=== PATIENT | female | born 1960 | race Caucasian/White ===

== ENCOUNTER 2016-12-31 10:00 | Outpatient (CLI) | payer MEDICARE, MEDICAID ==
--- NOTE | 2016-12-31 12:20 | MMO ---
BASELINE BILATERAL SCREENING MAMMOGRAM: Date: 12/31/16 COMPARISON: None. HISTORY: Screening. FINDINGS: This patient's mammogram was interpreted with the assistance of computer-aided detection. Scattered fibroglandular densities are present. No dominant mass or architectural distortion. No conc erning calcifications are noted. IMPRESSION: BIRADS 1: Negative Annual screening advised. POS: [facility]
== END 2016-12-31 10:01 | disposition home or self-care (01) ==
LOC: SCSMAMMO 10:00
PROVIDERS: ATTEND Nurse Practitioner Family
DX: Z12.31 Encounter for screening mammogram for malignant neoplasm of breast (principal)
CPT/HCPCS: 77067; G0202

== ENCOUNTER 2017-05-30 10:32 | Emergency (ER) | payer MEDICARE, MEDICAID ==
--- NOTE | 2017-05-30 11:14 | CT ---
CT OF THE BRAIN WITHOUT CONTRAST: INDICATION: History of fall, hitting right side of the head. FINDINGS: No comparisons are available. No acute infarct, hemorrhage, or hydrocephalus is present. Septum pellucidum and third ventricle are midline. The skull and extracranial soft tissues are unremarkable. IMPRESSION: No acute intracranial abnormality. POS: [facility]
--- NOTE | 2017-05-30 11:18 | CT ---
CT CERVICAL SPINE WITHOUT CONTRSAT: INDICATION: History of fall with neck pain. FINDINGS: Craniocervical junction is normal-appearing. There is mild multilevel disk degenerative facet osteoa rthritic change. Osseous central canal is preserved. No acute fracture or subluxation is demonstrat ed. The lung apices are clear. There is partial visualization of pacemaker leads within the upper t horax. Prevertebral soft tissues are normal-appearing. IMPRESSION: No acute fracture or subluxation is demonstrated. POS: [facility]
--- NOTE | 2017-05-30 11:23 | RAD ---
AP VIEW OF THE PELVIS WITH 2 VIEWS OF THE LEFT HIP: INDICATION: Fall. FINDINGS: No acute fracture or subluxation is evident. There is mild degenerative arthrosis involving the left hip. There is a mild amount of retained stool within the rectum and left hemicolon. There is mild diffuse osteopenia. IMPRESSION: 1. No acute osseous abnormality. 2. A mild amount of retained stool within the rectum and left hemicolon. POS: [facility]
== END 2017-05-30 12:58 | disposition home or self-care (01) ==
LOC: ERS 10:32
DX: S70.02XA Contusion of left hip, initial encounter (principal); S09.90XA Unspecified injury of head, initial encounter; I10 Essential (primary) hypertension; K21.9 Gastro-esophageal reflux disease without esophagitis; F31.9 Bipolar disorder, unspecified; F20.9 Schizophrenia, unspecified; W19.XXXA Unspecified fall, initial encounter
CPT/HCPCS: 70450; 72125; 72170

== ENCOUNTER 2017-06-02 17:06 | Inpatient (IN) | payer MEDICARE, MEDICAID ==
[2017-06-02 18:20] LABS: #Basophils 0.1 thou/uL (0.0-0.2); #Eosinphils 0.1 thou/uL (0.0-0.7); #Monocytes 0.6 thou/uL (0.11-0.59); #Neutrophils 5.8 thou/uL (1.40-6.50); %Basophils 0.7 % (0.0-1.0); %Eosinophils 1.3 % (0.0-10.0); %Neutrophils 68.1 % (42.0-75.0); Hemoglobin 11.7 g/dL (12.0-16.0); Mean Corpuscular HGB CONC 35.7 g/dL (32.0-36.0); Mean Corpuscular Hemoglobin 31.1 pg (27.0-31.0); Mean Corpuscular Volume 87.1 fl (81.0-99.0); Mean Platelet Volume 6.8 fL (7.4-10.4); Platelet Count 267 thou/uL (130-400); RBC Distribution Width 10.9 % (11.5-14.5); Red Blood Cell (RBC) Count 3.75 mill/uL (4.20-5.40); White Blood Cell (WBC) Count 8.6 thou/uL (4.8-10.8)
[2017-06-02 18:45] LABS: ALT (SGPT) 11 U/L (8-55); AST (SGOT) 16 U/L (5-34); Albumin 4.1 g/dL (3.5-5.0); Alkaline Phosphatase 121 U/L (40-150); Anion Gap 17 mmol/L (10-20); BUN (Urea Nitrogen) 49 mg/dL (9.8-20.1); Bilirubin, Total 0.3 mg/dL (0.2-1.2); CKMB 2.1 ng/mL (0-6.6); Calc. Creatinine Clearance 0 mL/min (70-130); Calcium 9.5 mg/dL (7.8-10.44); Carbon Dioxide 28 mmol/L (22-29); Chloride 91 mmol/L (98-107); Estimated GFR-MDRD 19; Globulin 2.8 g/dL (2.4-3.5); Glucose 113 mg/dL (70-105); Lipase 78 U/L (8-78); Magnesium 2.3 mg/dL (1.6-2.6); Protein, Total 6.9 g/dL (6.0-8.3); Sodium 133 mmol/L (136-145)
[2017-06-02 18:49] LABS: Potassium 2.9 mmol/L (3.5-5.1)
--- NOTE | 2017-06-02 19:22 | RAD ---
AP VIEW OF THE CHEST: 06/02/17 INDICATION: History of altered mental status and hypotension. COMPARISON: None. FINDINGS: The lungs are clear. The cardiomediastinal silhouette is within normal limits. No acute osseous abnor mality is evident. IMPRESSION: No acute abnormality. POS: [facility]
--- NOTE | 2017-06-02 20:40 | CT ---
CT OF THE BRAIN WITHOUT CONTRAST 06/02/17 INDICATION: Altered mental status and hypotension. Last seen normal at breakfast earlier. Patient has a history o f dementia. COMPARISON: Prior exam dated 05/30/17. FINDINGS: No acute infarct, hemorrhage, or hydrocephalus is present. The septum pellucidum and third ventricle are midline. Skull and extracranial soft tissues are unremarkable appearing. IMPRESSION: No acute intracranial abnormality. No appreciable change seen from a comparison dated 05/30/17. POS: [facility]
[2017-06-02 20:51] LABS: Bilirubin Negative (Negative); Clarity CLOUDY (Clear); Glucose, Urine (Dipstick) Negative (Negative); Leukocyte Large (Negative); Nitrite Positive (Negative); Protein, Urine (Dipstick) Negative (Neg-Trace); Specific Gravity, Urine 1.009 (1.002-1.036); Urobilinogen 0.2 mg/dL (0.2-1.0); pH, Urine 6.5 (5.0-9.0)
[2017-06-02 20:53] LABS: Bacteria/HPF 3+ HPF (None Seen); Hyaline Casts/LPF 4-6 HYALINE CAST LPF (0-3 Hyaline)
[2017-06-02] MEDS ORDERED: cefTRIAXone Sodium 1 MG in Syringe 0 ML IVPB SCH ×3 (21:00)
[2017-06-02] MEDS ORDERED: Famotidine/PF 20 mg/2ml Vial SLOW IVP SCH (21:00)
[2017-06-02] MEDS ORDERED: Pantoprazole 40 MG VIAL IVP SCH ×2 (21:00)
[2017-06-02 21:03] LABS: Blood, Urine Negative (Negative); RBC/HPF 0-3 HPF (0-3)
[2017-06-02 22:39] LABS: Anion Gap 15 mmol/L (10-20); BUN (Urea Nitrogen) 47 mg/dL (9.8-20.1); Calc. Creatinine Clearance 0 mL/min (70-130); Calcium 9.5 mg/dL (7.8-10.44); Carbon Dioxide 27 mmol/L (22-29); Chloride 94 mmol/L (98-107); Estimated GFR-MDRD 22; Glucose 113 mg/dL (70-105); Potassium 3.1 mmol/L (3.5-5.1); Sodium 133 mmol/L (136-145)
[2017-06-02 22:45] LABS: CKMB 2.4 ng/mL (0-6.6)
[2017-06-02 22:55] VITALS: BMI 31.7
[2017-06-03] MEDS: Heparin 5,000 UNITS/ML VIAL SC SCH ×8 (00:32→20:31)
--- NOTE | 2017-06-03 00:52 | HP ---
CHIEF COMPLAINT: Generalized weakness. PRIMARY CARE PHYSICIAN: Maria Alejandra Gore MD HISTORY OF PRESENT ILLNESS: Patient is a 56-year-old halfway resident with a history of paranoi d schizophrenia, diabetic, who presented to the hospital from the halfway with hypotension and a ltered mental status. Upon further talking with the patient's family who is at the bedside, who stat ed that patient for the past 3 weeks have been falling significantly and has been more confused than baseline. Furthermore, the patient's sister stated that when they took her out for dinner, patient rafy ot out of the hospital, could not walk very much and had to be let down gently because she just had s ome weakness. Family also has noticed that the patient has not been eating or drinking very much for the past few days. According to the patient and patient's family, she has fallen about 4 or 5 times in the last 2-3 weeks. The patient currently denies any chest pain, shortness of breath, nausea, vo miting, abdominal pain, or diarrhea. Spoke with the patient's sister who stated that there was a new psychiatrist for the past 2 weeks and has changed some of her medications. I will see if I can call the halfway tomorrow to see if any medications have been changed recently. PAST MEDICAL HISTORY: Paranoid schizophrenia. The patient has a pacemaker insertion, unknown reason . Actually patient's family stated that she was passing out while walking and therefore had a pacema ker inserted. SOCIAL HISTORY: Denies any smoking, however, in the past was a very heavy on alcoholic beverages and also a drug use in the past. FAMILY HISTORY: History of diabetes in both sisters. PAST SURGICAL HISTORY: She had some sort of ankle surgery; however, the patient is unable to tell me either right or left ankle. Scars are noted on the right ankle. REVIEW OF SYSTEMS: The following complete review of systems was negative, unless otherwise mentioned in the HPI or below: Constitutional: Weight loss or gain, ability to conduct usual activities. Sk in: Rash, itching. Eyes: Double vision, pain. ENT/Mouth: Nose bleeding, neck stiffness, pain, te nderness. Cardiovascular: Palpitations, dyspnea on exertion, orthopnea. Respiratory: Shortness of breath, wheezing, cough, hemoptysis, fever or night sweats. Gastrointestinal: Poor appetite, abdom inal pain, heartburn, nausea, vomiting, constipation, or diarrhea. Genitourinary: Urgency, frequenc y, dysuria, nocturia. Musculoskeletal: Pain, swelling. Neurologic/Psychiatric: Anxiety, depressio n. Allergy/Immunologic: Skin rash, bleeding tendency. MEDICATIONS: This is from the list from the halfway; 1. Amitriptyline 200 mg at bedtime. 2. Benztropine 1 mg at bedtime. 3. Colace 100 mg daily. 4. Ferrous sulfate 1 tab daily. 5. Fluphenazine decanoate solution 1 mL intramuscularly every day, starting at 15 and ending on e of every month. 6. Haloperidol 1 mg twice a day. 7. Klonopin 0.5 t.i.d. 8. Lasix 40 mg 1 p.o. daily. 9. Losartan and hydrochlorothiazide 100/25 mg one p.o. daily. 10. Metoprolol 50 mg 1 p.o. daily. 11. Prazosin 2 mg daily. 12. Tegretol 200 mg p.o. twice a day. 13. Zoloft 100 mg 1 p.o. daily. PHYSICAL EXAMINATION: VITAL SIGNS: The patient's temperature is 97.7, 20, 68, 101/68, 100% room air. GENERAL: She is awake, alert, oriented x2, does not appear in distress. CARDIOVASCULAR: S1, S2 present. No murmurs, rubs, or gallops. Pacemaker is on the left chest wall. No pain upon palpation. LUNGS: Clear to auscultation. No rhonchi or wheezes noted. ABDOMEN: Soft, nontender. Bowel sounds are present x2. EXTREMITIES: No pitting edema. LABORATORY DATA: As following: WBC of 8.6, hemoglobin 11.7, hematocrit of 32.7, platelets of 267,00 0. Sodium of 133, potassium of 2.9, BUN 49, creatinine of 2.59, unknown baseline. CK of 2.1, tropon in 0.02. BNP is 42. Ammonia of 17. TSH is 1.13. ASSESSMENT AND PLAN: The patient is a very pleasant 56-year-old female who presents to the hospital with complaints of altered mental status and generalized weakness. 1. Generalized weakness could be secondary to urinary tract infection versus arrhythmia. I am still waiting on urine which has not been collected. Chest x-ray does not appear to have any acute infect ious process, normal WBCs. Also, the patient does have creatinine of 2.59, I do not have previous on e for comparison. We will check a renal ultrasound, also replaced potassium is 2.9. We will get pac emaker interrogated. Also, we will await urine collection and start her on IV antibiotics for now fo r a possible UTI and her thyroid is normal. We will also get an echocardiogram to make sure patient has no systolic versus diastolic dysfunction. 2. Hypokalemia. She received 60 mEq of potassium in the ER. We will recheck a BMP at 10:00 p.m. to night. 3. Acute kidney injury. Again, I am not sure what the patient's baseline is. We will get a renal u ltrasound and will also call halfway in the morning to see if she had previous lab work. 4. Deep venous thrombosis prophylaxis. We will put the patient on subcu heparin. Also, we will david nd troponins.
[2017-06-03] MEDS: cefTRIAXone\\ROCEPHIN 1 GM, Syringe 0.4 ML in Sterile Water 9.6 ML SLOW IVP SCH ×2 (00:54→21:37)
[2017-06-03 06:09] LABS: Anion Gap 14 mmol/L (10-20); BUN (Urea Nitrogen) 42 mg/dL (9.8-20.1); Calc. Creatinine Clearance 49 mL/min (70-130); Calcium 9.7 mg/dL (7.8-10.44); Carbon Dioxide 27 mmol/L (22-29); Chloride 96 mmol/L (98-107); Estimated GFR-MDRD 30; Glucose 113 mg/dL (70-105); Sodium 134 mmol/L (136-145)
[2017-06-03 06:11] LABS: #Eosinphils 0.3 thou/uL (0.0-0.7); #Lymphocytes 2.2 thou/uL (1.20-3.40); #Monocytes 0.6 thou/uL (0.11-0.59); #Neutrophils 5.9 thou/uL (1.40-6.50); %Basophils 0.1 % (0.0-1.0); %Eosinophils 3.2 % (0.0-10.0); %Lymphocytes 24.1 % (21.0-51.0); %Monocytes 6.9 % (0.0-10.0); %Neutrophils 65.7 % (42.0-75.0); Hemoglobin 10.9 g/dL (12.0-16.0); Mean Corpuscular HGB CONC 35.2 g/dL (32.0-36.0); Mean Corpuscular Hemoglobin 30.5 pg (27.0-31.0); Mean Corpuscular Volume 86.7 fl (81.0-99.0); Mean Platelet Volume 6.9 fL (7.4-10.4); Platelet Count 254 thou/uL (130-400); RBC Distribution Width 10.8 % (11.5-14.5); Red Blood Cell (RBC) Count 3.56 mill/uL (4.20-5.40)
[2017-06-03 06:13] LABS: Potassium 2.5 mmol/L (3.5-5.1)
[2017-06-03] MEDS ORDERED: Potassium Chloride 20 MEQ TAB PO SCH ×4 (06:45→11:00)
[2017-06-03] MEDS ORDERED: ACETAMINOPHEN WITH CODEINE PO SCH (09:00)
--- NOTE | 2017-06-03 09:56 | ULT ---
RENAL SONOGRAM: DATE: 06/03/17. HISTORY: Acute renal insufficiency. FINDINGS: The kidneys demonstrate a normal sonographic appearance bilaterally without evidence of a renal mass, renal calculus, or hydronephrosis. The right kidney measures 10.3 cm x 4.8 cm with the left kidney measuring 10.2 cm x 5.3 cm. The urinary bladder is partially distended and has a normal sonographic appearance. The bilateral ur eteral jets are visualized. IMPRESSION: Normal-appearing bilateral kidneys. There is no evidence of hydronephrosis. POS: [facility]
[2017-06-03] MEDS: Haloperidol 1 MG TAB PO SCH ×2 (10:44→20:22)
[2017-06-03] MEDS: clonazePAM 0.5 MG TAB PO SCH ×3 (10:44→20:22)
[2017-06-03] MEDS: Docusate 100 MG CAP PO SCH (10:44)
[2017-06-03] MEDS: Metoprolol Tartrate 50 MG TAB PO SCH ×2 (10:45→20:22)
[2017-06-03] MEDS: carBAMazepine 200 MG TAB PO SCH ×2 (10:45→20:22)
[2017-06-03] MEDS: Famotidine 20 MG TAB PO SCH (10:45)
[2017-06-03] MEDS: Ferrous Sulfate 325 MG TAB PO SCH (10:46)
[2017-06-03] MEDS: Perphenazine 2 MG TAB PO SCH ×2 (11:54→20:21)
[2017-06-03 12:43] LABS: Anion Gap 13 mmol/L (10-20); BUN (Urea Nitrogen) 36 mg/dL (9.8-20.1); Calc. Creatinine Clearance 61 mL/min (70-130); Calcium 9.8 mg/dL (7.8-10.44); Carbon Dioxide 29 mmol/L (22-29); Chloride 97 mmol/L (98-107); Estimated GFR-MDRD 40; Glucose 121 mg/dL (70-105); Potassium 3.4 mmol/L (3.5-5.1); Sodium 136 mmol/L (136-145)
[2017-06-03] MEDS: Acetaminophen/Codeine 30-300mg Tablet PO SCH ×2 (14:37→21:33)
--- NOTE | 2017-06-03 14:49 | PDOC.PN ---
- Subjective Encounter Start Date: 06/03/17 Encounter Start Time: 09:45 Subjective: pt up in bed more awake today and denies any compalins - Objective Vital Signs & Weight: Vital Signs (12 hours) Temp Pulse Pulse Pulse Resp BP BP 06/03/17 11:15 98.2 F 81 16 06/03/17 11:05 84 82 119/67 121/76 06/03/17 07:43 74 16 06/03/17 04:00 98.4 F 79 16 BP Pulse Ox 06/03/17 11:15 121/76 96 06/03/17 11:05 06/03/17 07:43 106/51 L 96 06/03/17 04:00 102/55 L 93 L Weight Weight 184 lb 12.8 oz Result Diagrams: 06/03/17 05:44 06/03/17 12:09 Phys Exam - Physical Examination HEENT: PERRLA, moist MMs, sclera anicteric, TM's clear, oral pharynx no lesions , 2+ tonsils Neck: no nodes, no JVD, supple, full ROM Respiratory: no wheezing, no rales, no rhonchi, wheezing present, clear to auscultation bilateral Cardiovascular: RRR, no significant murmur, no rub, gallop, irregular Gastrointestinal: soft, non-tender, no distention, positive bowel sounds Dx/Plan - Plan Acute metabolic encephlopathy 2) uti 3) generalized weakness 4) paranoid schizophrenia plan: will continue abx for uti. pt states she feels much better. Her pacemaker needs to be interrograted. Pt's home meds continued. possible Discharge in 24- 48hr * . Review of Systems - Review of Systems Eyes: negative: Pain, Vision Change, Conjunctivae Inflammation, Eyelid Inflammation, Redness, Other ENT: negative: Ear Pain, Ear Discharge, Nose Pain, Nose Discharge, Nose Congestion, Mouth Pain, Mouth Swelling, Throat Pain, Throat Swelling, Other Respiratory: negative: Cough, Dry, Shortness of Breath, Hemoptysis, SOB with Excertion, Pleuritic Pain, Sputum, Wheezing Cardiovascular: negative: chest pain, palpitations, orthopnea, paroxysmal nocturnal dyspnea, edema, light headedness, other Gastrointestinal: negative: Nausea, Vomiting, Abdominal Pain, Diarrhea, Constipation, Melena, Hematochezia, Other Genitourinary: negative: Dysuria, Frequency, Incontinence, Hematuria, Retention , Other - Medications/Allergies Allergies/Adverse Reactions: Allergies Allergy/AdvReac Type Severity Reaction Status Date / Time sulfamethoxazole Allergy Verified 06/02/17 19:35 [From Bactrim] trimethoprim [From Bactrim] Allergy Verified 06/02/17 19:35 Medications: Current Medications Acetaminophen/Codeine Phosphate (Tylenol #3) 1 tab PO Q8HR [facility] Last Admin: 06/03/17 14:37 Dose: 1 tab Amitriptyline HCl (Elavil) 200 mg PO HS [facility] Benztropine Mesylate (Cogentin) 1 mg PO HS [facility] Carbamazepine (Tegretol) 200 mg PO BID [facility] Last Admin: 06/03/17 10:45 Dose: 200 mg Clonazepam (Klonopin) 0.5 mg PO TID [facility] Last Admin: 06/03/17 10:44 Dose: 0.5 mg Docusate Sodium (Colace) 100 mg PO DAILY [facility] Last Admin: 06/03/17 10:44 Dose: 100 mg Famotidine (Pepcid) 20 mg PO DAILY [facility] Last Admin: 06/03/17 10:45 Dose: 20 mg Ferrous Sulfate (Feosol) 325 mg PO DAILY [facility] Last Admin: 06/03/17 10:46 Dose: 325 mg Haloperidol (Haldol) 1 mg PO BID [facility] Last Admin: 06/03/17 10:44 Dose: 1 mg Heparin Sodium (Porcine) (Heparin) 5,000 units SC TID [facility] Last Admin: 06/03/17 10:56 Dose: 5,000 units Ceftriaxone Sodium 1 gm/ (Syringe 0.4 ml/ Sterile Water) 10 mls @ 120 mls/hr SLOW IVP 2200 [facility] Last Admin: 06/03/17 00:54 Dose: Not Given Metoprolol Tartrate (Lopressor) 50 mg PO BID [facility] Last Admin: 06/03/17 10:45 Dose: 50 mg Perphenazine (Trilafon) 4 mg PO BID [facility] Last Admin: 06/03/17 11:54 Dose: 4 mg Prazosin HCl (Minipress) 2 mg PO HS [facility] Sertraline HCl (Zoloft) 100 mg PO DAILY [facility] Last Admin: 06/03/17 10:46 Dose: 100 mg Sodium Chloride (Flush - Normal Saline) 10 ml IVF Q12HR [facility] Last Admin: 06/03/17 10:46 Dose: 10 ml Sodium Chloride (Flush - Normal Saline) 10 ml IVF PRN PRN PRN Reason: Saline Flush
[2017-06-03] MEDS: Amitriptyline HCl 100 MG TAB PO SCH (20:22)
[2017-06-03] MEDS: Benztropine 1 MG TAB PO SCH ×2 (20:23)
[2017-06-03] MEDS: Prazosin HCl 1 MG CAP PO SCH (20:31)
[2017-06-04] MEDS: Acetaminophen/Codeine 30-300mg Tablet PO SCH ×3 (05:05→21:01)
[2017-06-04 05:36] LABS: Eosinophils 6 % (0-10); Hemoglobin 10.2 g/dL (12.0-16.0); Lymphocytes 50 % (21-51); MDiff Complete? YES; Mean Corpuscular Hemoglobin 30.7 pg (27.0-31.0); Mean Corpuscular Volume 87.8 fl (81.0-99.0); Mean Platelet Volume 7.1 fL (7.4-10.4); Monocytes 10 % (0-10); Neutrophil 34 % (42-75); PLT Morphology Comment Appears Adequate; Platelet Count 256 thou/uL (130-400); RBC Distribution Width 10.9 % (11.5-14.5); Red Blood Cell (RBC) Count 3.33 mill/uL (4.20-5.40); White Blood Cell (WBC) Count 7.1 thou/uL (4.8-10.8)
[2017-06-04 05:40] LABS: Anion Gap 11 mmol/L (10-20); BUN (Urea Nitrogen) 33 mg/dL (9.8-20.1); Calc. Creatinine Clearance 70 mL/min (70-130); Calcium 9.5 mg/dL (7.8-10.44); Carbon Dioxide 29 mmol/L (22-29); Chloride 100 mmol/L (98-107); Estimated GFR-MDRD 46; Glucose 110 mg/dL (70-105); Potassium 3.3 mmol/L (3.5-5.1); Sodium 137 mmol/L (136-145)
[2017-06-04] MEDS ORDERED: guaiFENesin 100 MG/5 ML UDCUP PO PRN (07:53)
[2017-06-04 08:12] LABS: Magnesium 2.1 mg/dL (1.6-2.6); Phosphorus 2.9 mg/dL (2.3-4.7)
[2017-06-04] MEDS ORDERED: Potassium Chloride 20 MEQ TAB PO SCH ×2 (08:15)
[2017-06-04] MEDS: Famotidine 20 MG TAB PO SCH (09:51)
[2017-06-04] MEDS: clonazePAM 0.5 MG TAB PO SCH ×3 (09:51→20:52)
[2017-06-04] MEDS: Heparin 5,000 UNITS/ML VIAL SC SCH ×6 (09:51→21:03)
[2017-06-04] MEDS: Calcium Carbonate + Vit D 1 TAB PO SCH ×2 (09:51→20:53)
[2017-06-04] MEDS: Haloperidol 1 MG TAB PO SCH ×2 (09:51→20:53)
[2017-06-04] MEDS: Docusate 100 MG CAP PO SCH (09:52)
[2017-06-04] MEDS: Perphenazine 2 MG TAB PO SCH ×2 (09:52→20:53)
[2017-06-04] MEDS: carBAMazepine 200 MG TAB PO SCH ×2 (09:52→20:52)
[2017-06-04] MEDS: Ferrous Sulfate 325 MG TAB PO SCH (09:52)
[2017-06-04] MEDS: Metoprolol Tartrate 50 MG TAB PO SCH (10:57)
--- NOTE | 2017-06-04 12:37 | PDOC.PN ---
- Subjective Encounter Start Date: 06/04/17 Encounter Start Time: 08:00 -: old records requested/rev Patient seen and examined. No new complaints. No overnight events - Objective MAR Reviewed: Yes Vital Signs & Weight: Vital Signs (12 hours) Temp Pulse Pulse Pulse Resp BP BP 06/04/17 11:42 98.0 F 73 16 06/04/17 09:43 97.7 F 68 18 06/04/17 08:38 68 68 95/60 107/59 L 06/04/17 04:00 98.0 F 63 14 BP Pulse Ox 06/04/17 11:42 104/62 96 06/04/17 09:43 98/58 L 95 06/04/17 08:38 06/04/17 04:00 101/56 L 93 L Weight Weight 184 lb 3 oz I&O: 06/03/17 06/04/17 06/05/17 06:59 06:59 06:59 Intake Total 1680 Output Total 2300 Balance -620 Result Diagrams: 06/04/17 04:52 06/04/17 04:52 EKG Reviewed by me: Yes (nsr) Phys Exam - Physical Examination Constitutional: NAD HEENT: PERRLA, moist MMs, sclera anicteric Neck: no JVD, supple Respiratory: no wheezing, no rales, no rhonchi Cardiovascular: RRR, no significant murmur, no rub Gastrointestinal: soft, non-tender, no distention, positive bowel sounds Musculoskeletal: no edema, pulses present Neurological: non-focal, normal sensation Lymphatic: no nodes Psychiatric: normal affect, A&O x 3 Skin: no rash, normal turgor Dx/Plan (1) Acute kidney failure Status: Acute (2) Encephalopathy acute Code(s): G93.40 - ENCEPHALOPATHY, UNSPECIFIED Status: Acute (3) Hypokalemia Code(s): E87.6 - HYPOKALEMIA Status: Acute (4) UTI (urinary tract infection) Status: Acute (5) Anemia, normocytic normochromic Code(s): D64.9 - ANEMIA, UNSPECIFIED Status: Chronic (6) GERD (gastroesophageal reflux disease) Code(s): K21.9 - GASTRO-ESOPHAGEAL REFLUX DISEASE WITHOUT ESOPHAGITIS Status: Chronic (7) H/O cardiac pacemaker Code(s): Z95.0 - PRESENCE OF CARDIAC PACEMAKER Status: Chronic (8) Hypertension Code(s): I10 - ESSENTIAL (PRIMARY) HYPERTENSION Status: Chronic (9) Obesity (BMI 30.0-34.9) Code(s): E66.9 - OBESITY, UNSPECIFIED Status: Chronic (10) Paranoid schizophrenia Code(s): F20.0 - PARANOID SCHIZOPHRENIA Status: Chronic - Plan cont current plan of care, continue antibiotics * replace potassium * await C & S result * meanwhile continue rocephin * renal function improving * medication reviewed as below * symptomatic treatment. * adjust BP meds today * currently BP runs low, so will hold BP meds * start IVF with potassium * repeat labs tomorrow Review of Systems - Review of Systems ENT: negative: Ear Pain, Ear Discharge, Nose Pain, Nose Discharge, Nose Congestion, Mouth Pain, Mouth Swelling, Throat Pain, Throat Swelling, Other Respiratory: negative: Cough, Dry, Shortness of Breath, Hemoptysis, SOB with Excertion, Pleuritic Pain, Sputum, Wheezing Cardiovascular: negative: chest pain, palpitations, orthopnea, paroxysmal nocturnal dyspnea, edema, light headedness, other Gastrointestinal: negative: Nausea, Vomiting, Abdominal Pain, Diarrhea, Constipation, Melena, Hematochezia, Other Genitourinary: negative: Dysuria, Frequency, Incontinence, Hematuria, Retention , Other Musculoskeletal: negative: Neck Pain, Shoulder Pain, Arm Pain, Back Pain, Hand Pain, Leg Pain, Foot Pain, Other Skin: negative: Rash, Lesions, Tesfaye, Bruising, Other - Medications/Allergies Allergies/Adverse Reactions: Allergies Allergy/AdvReac Type Severity Reaction Status Date / Time sulfamethoxazole Allergy Verified 06/02/17 19:35 [From Bactrim] trimethoprim [From Bactrim] Allergy Verified 06/02/17 19:35 Medications: Current Medications Acetaminophen/Codeine Phosphate (Tylenol #3) 1 tab PO Q8HR [facility] Last Admin: 06/04/17 05:05 Dose: 1 tab Albuterol Sulfate (Proventil Hfa) 2 puff INH Q8HR [facility] Amitriptyline HCl (Elavil) 200 mg PO [facility] Last Admin: 06/03/17 20:22 Dose: 200 mg Benztropine Mesylate (Cogentin) 1 mg PO [facility] Last Admin: 06/03/17 20:23 Dose: 1 mg Calcium/Vitamin D (Caltrate 600 + Vit D) 1 tab PO BID [facility] Last Admin: 06/04/17 09:51 Dose: 1 tab Carbamazepine (Tegretol) 200 mg PO BID [facility] Last Admin: 06/04/17 09:52 Dose: 200 mg Clonazepam (Klonopin) 0.5 mg PO TID [facility] Last Admin: 06/04/17 09:51 Dose: 0.5 mg Docusate Sodium (Colace) 100 mg PO DAILY [facility] Last Admin: 06/04/17 09:52 Dose: 100 mg Famotidine (Pepcid) 20 mg PO DAILY [facility] Last Admin: 06/04/17 09:51 Dose: 20 mg Ferrous Sulfate (Feosol) 325 mg PO DAILY [facility] Last Admin: 06/04/17 09:52 Dose: 325 mg Guaifenesin (Robitussin) 200 mg PO Q4H PRN PRN Reason: Cough Haloperidol (Haldol) 1 mg PO BID [facility] Last Admin: 06/04/17 09:51 Dose: 1 mg Heparin Sodium (Porcine) (Heparin) 5,000 units SC TID [facility] Last Admin: 06/04/17 09:51 Dose: 5,000 units Ceftriaxone Sodium 1 gm/ (Syringe 0.4 ml/ Sterile Water) 10 mls @ 120 mls/hr SLOW IVP 2200 [facility] Last Admin: 06/03/17 21:37 Dose: 10 mls Metoprolol Tartrate (Lopressor) 50 mg PO BID [facility] Last Admin: 06/04/17 10:57 Dose: Not Given Perphenazine (Trilafon) 4 mg PO BID [facility] Last Admin: 06/04/17 09:52 Dose: 4 mg Prazosin HCl (Minipress) 2 mg PO HS [facility] Last Admin: 06/03/17 20:31 Dose: 2 mg Sertraline HCl (Zoloft) 100 mg PO DAILY [facility] Last Admin: 06/04/17 09:51 Dose: 100 mg Sodium Chloride (Flush - Normal Saline) 10 ml IVF Q12HR [facility] Last Admin: 06/04/17 09:53 Dose: 10 ml Sodium Chloride (Flush - Normal Saline) 10 ml IVF PRN PRN PRN Reason: Saline Flush
[2017-06-04] MEDS: PROVENTIL INHALER 6.7 G (200 INHALATIONS) INH SCH ×2 (14:04→23:40)
[2017-06-04] MEDS: NS 0.9% w/ 20 MEQ KCL 1,000 ML/1,000 ML BAG IV SCH (15:08)
[2017-06-04] MEDS: Benztropine 1 MG TAB PO SCH ×2 (20:53)
[2017-06-04] MEDS: Prazosin HCl 1 MG CAP PO SCH (20:53)
[2017-06-04] MEDS: Amitriptyline HCl 100 MG TAB PO SCH (20:53)
[2017-06-04] MEDS: cefTRIAXone\\ROCEPHIN 1 GM, Syringe 0.4 ML in Sterile Water 9.6 ML SLOW IVP SCH (23:26)
[2017-06-05] MEDS: NS 0.9% w/ 20 MEQ KCL 1,000 ML/1,000 ML BAG IV SCH ×2 (01:55→13:58)
[2017-06-05 05:48] LABS: #Basophils 0.1 thou/uL (0.0-0.2); #Eosinphils 0.2 thou/uL (0.0-0.7); #Lymphocytes 3.3 thou/uL (1.20-3.40); #Monocytes 0.6 thou/uL (0.11-0.59); #Neutrophils 2.4 thou/uL (1.40-6.50); %Basophils 0.9 % (0.0-1.0); %Eosinophils 3.6 % (0.0-10.0); %Lymphocytes 49.9 % (21.0-51.0); %Monocytes 8.5 % (0.0-10.0); %Neutrophils 37.2 % (42.0-75.0); Hemoglobin 9.6 g/dL (12.0-16.0); Mean Corpuscular HGB CONC 34.8 g/dL (32.0-36.0); Mean Corpuscular Volume 89.1 fl (81.0-99.0); Mean Platelet Volume 6.8 fL (7.4-10.4); Platelet Count 242 thou/uL (130-400); RBC Distribution Width 10.9 % (11.5-14.5); Red Blood Cell (RBC) Count 3.09 mill/uL (4.20-5.40); White Blood Cell (WBC) Count 6.5 thou/uL (4.8-10.8)
[2017-06-05 06:02] LABS: Anion Gap 11 mmol/L (10-20); BUN (Urea Nitrogen) 17 mg/dL (9.8-20.1); Calc. Creatinine Clearance 99 mL/min (70-130); Calcium 9.1 mg/dL (7.8-10.44); Carbon Dioxide 27 mmol/L (22-29); Chloride 104 mmol/L (98-107); Estimated GFR-MDRD 69; Glucose 114 mg/dL (70-105); Potassium 3.8 mmol/L (3.5-5.1); Sodium 138 mmol/L (136-145)
[2017-06-05] MEDS: Acetaminophen/Codeine 30-300mg Tablet PO SCH ×2 (06:17→14:27)
[2017-06-05] MEDS: PROVENTIL INHALER 6.7 G (200 INHALATIONS) INH SCH ×2 (07:15→14:31)
[2017-06-05] MEDS: Calcium Carbonate + Vit D 1 TAB PO SCH (08:19)
[2017-06-05] MEDS: Ferrous Sulfate 325 MG TAB PO SCH (08:19)
[2017-06-05] MEDS: Famotidine 20 MG TAB PO SCH (08:19)
[2017-06-05] MEDS: carBAMazepine 200 MG TAB PO SCH (08:19)
[2017-06-05] MEDS: Docusate 100 MG CAP PO SCH (08:19)
[2017-06-05] MEDS: Haloperidol 1 MG TAB PO SCH (08:19)
[2017-06-05] MEDS: Heparin 5,000 UNITS/ML VIAL SC SCH ×4 (08:19→14:28)
[2017-06-05] MEDS: clonazePAM 0.5 MG TAB PO SCH ×2 (08:20→16:24)
[2017-06-05] MEDS ORDERED: Nitrofurantoin Monohyd/M-Cryst 100 MG CAP PO SCH ×2 (10:15→21:00)
[2017-06-05] MEDS: Perphenazine 2 MG TAB PO SCH (10:28)
--- NOTE | 2017-06-05 11:32 | PDOC.PN ---
- Subjective Encounter Start Date: 06/05/17 Encounter Start Time: 07:30 Patient seen and examined. No new complaints. No overnight events - Objective MAR Reviewed: Yes Vital Signs & Weight: Vital Signs (12 hours) Temp Pulse Resp BP BP Pulse Ox 06/05/17 08:15 97.7 F 85 18 118/63 98 06/05/17 07:15 65 12 06/05/17 04:00 97.5 F L 69 12 100/72 97 06/05/17 00:00 97.7 F 75 18 101/55 L 98 Weight Weight 190 lb I&O: 06/04/17 06/05/17 06/06/17 06:59 06:59 06:59 Intake Total 1680 2965 Output Total 2300 2000 Balance -620 965 Result Diagrams: 06/05/17 05:17 06/05/17 05:17 EKG Reviewed by me: Yes Phys Exam - Physical Examination Constitutional: NAD HEENT: PERRLA, moist MMs, sclera anicteric Neck: no JVD, supple Respiratory: no wheezing, no rales, no rhonchi Cardiovascular: RRR, no significant murmur, no rub Gastrointestinal: soft, non-tender, no distention, positive bowel sounds Musculoskeletal: no edema, pulses present Neurological: non-focal, normal sensation, moves all 4 limbs Psychiatric: normal affect, A&O x 3 Skin: no rash, normal turgor Dx/Plan (1) Acute kidney failure Status: Resolved (2) Encephalopathy acute Code(s): G93.40 - ENCEPHALOPATHY, UNSPECIFIED Status: Resolved (3) Hypokalemia Code(s): E87.6 - HYPOKALEMIA Status: Resolved (4) UTI (urinary tract infection) Status: Acute (5) Anemia, normocytic normochromic Code(s): D64.9 - ANEMIA, UNSPECIFIED Status: Chronic (6) GERD (gastroesophageal reflux disease) Code(s): K21.9 - GASTRO-ESOPHAGEAL REFLUX DISEASE WITHOUT ESOPHAGITIS Status: Chronic (7) H/O cardiac pacemaker Code(s): Z95.0 - PRESENCE OF CARDIAC PACEMAKER Status: Chronic (8) Hypertension Code(s): I10 - ESSENTIAL (PRIMARY) HYPERTENSION Status: Chronic (9) Obesity (BMI 30.0-34.9) Code(s): E66.9 - OBESITY, UNSPECIFIED Status: Chronic (10) Paranoid schizophrenia Code(s): F20.0 - PARANOID SCHIZOPHRENIA Status: Chronic - Plan cont current plan of care, continue antibiotics, director of social work * change to macrobid for UTI * stable for discharge * DC BP meds for low BP * medication reviewed as below * symptomatic treatment * see discharge theo. Review of Systems - Review of Systems ENT: negative: Ear Pain, Ear Discharge, Nose Pain, Nose Discharge, Nose Congestion, Mouth Pain, Mouth Swelling, Throat Pain, Throat Swelling, Other Respiratory: negative: Cough, Dry, Shortness of Breath, Hemoptysis, SOB with Excertion, Pleuritic Pain, Sputum, Wheezing Cardiovascular: negative: chest pain, palpitations, orthopnea, paroxysmal nocturnal dyspnea, edema, light headedness, other Gastrointestinal: negative: Nausea, Vomiting, Abdominal Pain, Diarrhea, Constipation, Melena, Hematochezia, Other Genitourinary: negative: Dysuria, Frequency, Incontinence, Hematuria, Retention , Other Musculoskeletal: negative: Neck Pain, Shoulder Pain, Arm Pain, Back Pain, Hand Pain, Leg Pain, Foot Pain, Other Skin: negative: Rash, Lesions, Tesfaye, Bruising, Other - Medications/Allergies Allergies/Adverse Reactions: Allergies Allergy/AdvReac Type Severity Reaction Status Date / Time sulfamethoxazole Allergy Verified 06/02/17 19:35 [From Bactrim] trimethoprim [From Bactrim] Allergy Verified 06/02/17 19:35 Medications: Current Medications Acetaminophen/Codeine Phosphate (Tylenol #3) 1 tab PO Q8HR [facility] Last Admin: 06/05/17 06:17 Dose: 1 tab Albuterol Sulfate (Proventil Hfa) 2 puff INH Q8HR [facility] Last Admin: 06/05/17 07:15 Dose: 2 puff Amitriptyline HCl (Elavil) 200 mg PO [facility] Last Admin: 06/04/17 20:53 Dose: 200 mg Benztropine Mesylate (Cogentin) 1 mg PO [facility] Last Admin: 06/04/17 20:53 Dose: 1 mg Calcium/Vitamin D (Caltrate 600 + Vit D) 1 tab PO BID [facility] Last Admin: 06/05/17 08:19 Dose: 1 tab Carbamazepine (Tegretol) 200 mg PO BID [facility] Last Admin: 06/05/17 08:19 Dose: 200 mg Clonazepam (Klonopin) 0.5 mg PO TID [facility] Last Admin: 06/05/17 08:20 Dose: 0.5 mg Docusate Sodium (Colace) 100 mg PO DAILY [facility] Last Admin: 06/05/17 08:19 Dose: 100 mg Famotidine (Pepcid) 20 mg PO DAILY [facility] Last Admin: 06/05/17 08:19 Dose: 20 mg Ferrous Sulfate (Feosol) 325 mg PO DAILY [facility] Last Admin: 06/05/17 08:19 Dose: 325 mg Guaifenesin (Robitussin) 200 mg PO Q4H PRN PRN Reason: Cough Haloperidol (Haldol) 1 mg PO BID [facility] Last Admin: 06/05/17 08:19 Dose: 1 mg Heparin Sodium (Porcine) (Heparin) 5,000 units SC TID [facility] Last Admin: 06/05/17 08:19 Dose: 5,000 units Potassium Chloride/Sodium Chloride (Ns 0.9% W/ 20 Meq Kcl) 1,000 ml in 1,000 mls @ 100 mls/hr IV .Q10H [facility] Last Admin: 06/05/17 01:55 Dose: Not Given Nitrofurantoin Macrocrystals (Macrobid) 100 mg PO BID [facility] Nitrofurantoin Macrocrystals (Macrobid) 100 mg PO NOW [facility] Stop: 06/05/17 12:15 Perphenazine (Trilafon) 4 mg PO BID [facility] Last Admin: 06/05/17 10:28 Dose: 4 mg Prazosin HCl (Minipress) 2 mg PO HS [facility] Last Admin: 06/04/17 20:53 Dose: 2 mg Sertraline HCl (Zoloft) 100 mg PO DAILY [facility] Last Admin: 06/05/17 08:20 Dose: 100 mg Sodium Chloride (Flush - Normal Saline) 10 ml IVF Q12HR [facility] Last Admin: 06/05/17 08:20 Dose: Not Given Sodium Chloride (Flush - Normal Saline) 10 ml IVF PRN PRN PRN Reason: Saline Flush
[2017-06-05 11:40] VITALS: TEMP 97.8
--- NOTE | 2017-06-05 12:46 | DIS ---
DATE OF ADMISSION: 06/02/2017 DATE OF DISCHARGE: 06/05/2017 PRIMARY CARE PHYSICIAN: Dr. Maria Alejandra Gore. DISCHARGE DISPOSITION: [facility]. PRIMARY DISCHARGE DIAGNOSES: 1. Acute kidney failure. 2. Acute metabolic encephalopathy. 3. Generalized weakness. 4. Urinary tract infection due to Pseudomonas. 5. Hypokalemia. SECONDARY DISCHARGE DIAGNOSES: Normocytic normochromic anemia, gastroesophageal reflux disease, hist ory of cardiac pacemaker, history of hypertension, obesity with BMI 32, and paranoid schizophrenia . PRIMARY PROCEDURE AND OPERATION: None. RADIOLOGICAL INVESTIGATION: CT brain was negative for any acute process. Chest x-ray negative for a ny acute process. Echocardiography showed EF 55%-60%. Renal ultrasound was normal. SIGNIFICANT LABS: Hemoglobin 9.6, WBC 6.5, platelet 242. Sodium 138, potassium 3.8, BUN 17, creatin ine 0.86, calcium 9.1, phosphorus 2.9, magnesium 2.1. Cardiac enzyme negative. LFT normal. BNP 42. 7. Urinalysis suggestive of UTI. Urine culture grew E. coli. Blood culture was negative. DISCHARGE MEDICATIONS: Tylenol No. 3 one tablet p.o. t.i.d. p.r.n., amitriptyline 200 mg p.o. at bed time, benztropine 1 mg p.o. at bedtime, calcium with vitamin D 1 tablet p.o. b.i.d., Tegretol 200 mg p.o. b.i.d., clonazepam 0.5 mg p.o. t.i.d., Colace 100 mg p.o. daily, ferrous sulfate 325 mg p.o. aime ly, Robitussin 10 mL q.4 hourly p.r.n., haloperidol 1 mg p.o. b.i.d., Imodium 2 mg as directed, Macro bid 100 mg p.o. b.i.d. for 7 days, Zofran 8 mg q.4 hourly p.r.n. Trilafon 4 mg p.o. b.i.d., Zoloft 10 0 mg p.o. daily, Ventolin 2 puffs q.8 hourly, and Zantac 150 mg p.o. b.i.d. CONTRAINDICATIONS: None. CODE STATUS: FULL CODE. INPATIENT CONSULTANTS: None. ALLERGIES: SULFA DRUGS. DISCHARGE PLAN: Post hospital, the patient is planned for discharge to [facility]. HOSPITAL COURSE: A 56-year-old female who was admitted by Dr. Laura Hayes. Please see her H and P for further details. This patient lives at [facility], where she was found confused th an her baseline. The patient was very weak. The patient was sent to emergency room and routine bloo d tests showed acute kidney failure. On admission, her creatinine was 2.59. She was clinically appe ared significantly dehydrated with a low sodium, low potassium, and low chloride. Other blood tests were unremarkable. Her urinalysis was suggestive of UTI. The patient was treated with Rocephin whil e in hospital, and based on culture and sensitivity result, we changed to Macrobid. Though the patie nt was not having any UTI symptoms, we decided to treat for 7 days with Macrobid therapy. With IV fl uid, patient's renal function improved to normal. During this admission, she was observed on telemet ry floor for any arrhythmia, but she did not have any arrhythmia. Her pacemaker was interrogated, wh ich was also unremarkable. Echocardiography was obtained, which was also unremarkable. Renal ultras ound was normal. By the time of discharge, the patient's renal function is improved to normal. Her CBC is improved and stable. The patient is also more alert and back to normal state. The patient is seen and examined at bedside today. Paper work for discharge done. Discharge medicat ion reconciliation done. Total time spent on discharge day is 31 minutes. Please see my discharge my progress note from today for further detail.
[2017-06-05 16:22] VITALS: BP 131/75
== END 2017-06-05 16:43 | DRG 682 ==
LOC: ERS 17:06 → 2NO 20:47
PROVIDERS: ADMIT Internal Medicine; ATTEND Internal Medicine
DX: N17.9 Acute kidney failure, unspecified (principal); G93.41 Metabolic encephalopathy; F20.0 Paranoid schizophrenia; B96.5 Pseudomonas (aeruginosa) (mallei) (pseudomallei) as the cause of diseases classified elsewhere; D64.9 Anemia, unspecified; E11.9 Type 2 diabetes mellitus without complications; N39.0 Urinary tract infection, site not specified; R53.1 Weakness; E87.6 Hypokalemia; K21.9 Gastro-esophageal reflux disease without esophagitis; Z95.0 Presence of cardiac pacemaker; I10 Essential (primary) hypertension; E66.9 Obesity, unspecified; Z68.32 Body mass index [BMI] 32.0-32.9, adult; Z88.2 Allergy status to sulfonamides; Z79.4 Long term (current) use of insulin
CPT/HCPCS: 36415; 70450; 71045; 72125; 72170; 76770; 80048; 80053; 81003; 81015; 82140; 82553; 83605; 83690; 83735; 83880; 84100; 84443; 84484; 85007; 85025; 85027; 87040; 87077; 87086; 87149; 87186; 93005; 93306; 96361; 96374; A4216; C9113; G8978-GP-CI; G8979-GP-CI; G8980-GP-CI; G8987-GO-CI; G8988-GO-CI; G8989-GO-CI; J0696; J1644; Q0175

== ENCOUNTER → 2020-05-07 | Day surgery (SDC) | payer MEDICARE, MEDICAID | LOC: ENDO/OP 11:26 | PROVIDERS: ATTEND Internal Medicine Gastroenterology | DX: K21.9 Gastro-esophageal reflux disease without esophagitis (principal); Z88.1 Allergy status to other antibiotic agents; Z88.2 Allergy status to sulfonamides | CPT/HCPCS: 91010 ==

== ENCOUNTER 2020-05-24 10:27 | Outpatient (CLI) | payer MEDICARE, MEDICAID ==
[2020-05-24 11:47] LABS: #Eosinphils 0.1 10x3/uL (0.0-0.5); #Monocytes 0.5 10x3/uL (0.0-1.1); #Neutrophils 2.9 10x3/uL (1.5-8.4); %Basophils 0.7 % (0.0-2.0); %Eosinophils 1.9 % (0.0-6.0); %Lymphocytes 37.9 % (18.0-47.0); %Neutrophils 50.3 % (40.0-75.0); Hemoglobin 12.3 g/dL (12.0-15.5); Mean Corpuscular HGB CONC 32.2 g/dL (32.0-36.0); Mean Corpuscular Hemoglobin 30.1 pg (27.0-33.0); Mean Corpuscular Volume 93.6 fl (81.6-98.3); Mean Platelet Volume 10.6 fl (7.4-10.4); Platelet Count 217 10x3/uL (150-450); RBC Distribution Width 11.8 % (11.5-14.5); Red Blood Cell (RBC) Count 4.08 10x6/uL (3.90-5.03); White Blood Cell (WBC) Count 5.7 10x3/uL (3.5-10.5)
[2020-05-24 12:12] LABS: Anion Gap 16 mmol/L (10-20); BUN (Urea Nitrogen) 12 mg/dL (9.8-20.1); Calc. Creatinine Clearance 0 mL/min (70-130); Carbon Dioxide 23 mmol/L (22-29); Chloride 108 mmol/L (98-107); Glucose 88 mg/dL (70-105); Potassium 4.5 mmol/L (3.5-5.1); Sodium 142 mmol/L (136-145)
[2020-05-24 17:58] LABS: SARS-CoV-2 PCR by NAA Not Detected (NotDetected)
== END 2020-05-24 10:28 | disposition home or self-care (01) ==
LOC: LABBT 10:27
PROVIDERS: ATTEND Surgery
DX: Z01.818 Encounter for other preprocedural examination (principal); K44.9 Diaphragmatic hernia without obstruction or gangrene; Z20.822 Contact with and (suspected) exposure to COVID-19
CPT/HCPCS: 80048; 85025; 93005; U0003; U0005; 87635; 93010

== ENCOUNTER 2020-05-29 09:45 | Observation (INO) | payer MEDICARE, MEDICAID ==
[2020-05-28 10:31] VITALS: BMI 26.7
[2020-05-29] MEDS ORDERED: Lidocaine 2% w/Epinephrine 1:200K 20 ML VIAL ONE (11:30)
[2020-05-29] MEDS ORDERED: Bupivacaine 0.25% HCL 30 ML VIAL ONE (11:30)
[2020-05-29] MEDS ORDERED: Midazolam HCl 2 mg/2 ml Vial ONE (11:35)
[2020-05-29] MEDS ORDERED: Fentanyl 100 MCG/2 ML VIAL ONE ×4 (11:35→15:20)
[2020-05-29] MEDS ORDERED: Ondansetron PF 4 MG/2 ML Vial ONE (12:03)
[2020-05-29] MEDS ORDERED: Lidocaine 1% PF 5 ML VIAL ONE (12:03)
[2020-05-29] MEDS ORDERED: PROPOFOL 200 MG/20 ML VIAL ONE (12:03)
[2020-05-29] MEDS ORDERED: Rocuronium Bromide 10 MG/ML (10ML VIAL) ONE (12:03)
[2020-05-29] MEDS ORDERED: Glycopyrrolate 0.2 MG/ML 5 ML SYRINGE ONE (12:03)
[2020-05-29] MEDS ORDERED: Dexamethasone 20 MG/5 ML VIAL ONE (12:03)
[2020-05-29] MEDS ORDERED: Labetalol HCl 100 MG/20 ML VIAL ONE (14:26)
[2020-05-29] MEDS ORDERED: cloNIDine 0.1 MG TAB PO PRN (14:34)
[2020-05-29] MEDS ORDERED: hydrALAZINE 20 MG/ML VIAL SLOW IVP PRN (14:34)
[2020-05-29] MEDS ORDERED: Promethazine HCl 25 MG/ML VIAL IM PRN (14:34)
[2020-05-29] MEDS ORDERED: Dextrose 50% Abboject 50 ML SYRINGE SLOW IVP PRN (14:34)
[2020-05-29] MEDS ORDERED: Dextrose 5% in Water 1,000 ML IV PRN (14:34)
[2020-05-29] MEDS ORDERED: Morphine 4 MG/ML VIAL SLOW IVP PRN (14:34)
[2020-05-29] MEDS ORDERED: Ondansetron PF 4 MG/2 ML Vial IVP PRN (14:34)
[2020-05-29] MEDS ORDERED: hydrALAZINE 20 MG/ML VIAL ONE (14:50)
[2020-05-29] MEDS ORDERED: Hydrocodone-Acetamin 15 ML UDCUP ONE (14:51)
[2020-05-29] MEDS: Sodium Chloride 0.9% 1,000 ML IV SCH (16:18)
[2020-05-29] MEDS: Benztropine 1 MG TAB PO SCH ×2 (16:18→20:04)
[2020-05-29] MEDS: Morphine 2 MG/ML VIAL SLOW IVP PRN ×2 (17:05→20:04)
[2020-05-29] MEDS: carBAMazepine 200 MG TAB PO SCH (20:04)
[2020-05-29] MEDS ORDERED: Prazosin HCl 1 MG CAP PO SCH (21:00)
[2020-05-29] MEDS ORDERED: Atorvastatin Calcium 10 MG TAB PO SCH (21:00)
[2020-05-29] MEDS: Hydrocodone-Acetamin 15 ML UDCUP PO PRN (23:49)
[2020-05-30] MEDS: Sodium Chloride 0.9% 1,000 ML IV SCH ×2 (03:23→11:36)
[2020-05-30 06:20] LABS: #Lymphocytes 1.4 thou/uL (1.20-3.40); #Monocytes 0.6 thou/uL (0.11-0.59); #Neutrophils 4.6 thou/uL (1.40-6.50); %Basophils 0.4 % (0.0-1.0); %Eosinophils 0.1 % (0.0-10.0); %Lymphocytes 21.1 % (21.0-51.0); %Monocytes 8.7 % (0.0-10.0); %Neutrophils 69.7 % (42.0-75.0); Hemoglobin 11.4 g/dL (12.0-16.0); Mean Corpuscular HGB CONC 32.9 g/dL (32.0-36.0); Mean Corpuscular Hemoglobin 30.2 pg (27.0-31.0); Mean Corpuscular Volume 91.8 fL (78.0-98.0); Mean Platelet Volume 8.6 fL (7.4-10.4); Platelet Count 172 thou/uL (130-400); RBC Distribution Width 10.8 % (11.5-14.5); Red Blood Cell (RBC) Count 3.79 mill/uL (4.20-5.40); White Blood Cell (WBC) Count 6.6 thou/uL (4.8-10.8)
[2020-05-30 06:54] LABS: Anion Gap 12 mmol/L (10-20); BUN (Urea Nitrogen) 6 mg/dL (9.8-20.1); Calc. Creatinine Clearance 103 mL/min (70-130); Calcium 8.7 mg/dL (7.8-10.44); Carbon Dioxide 24 mmol/L (22-29); Chloride 108 mmol/L (98-107); Glucose 101 mg/dL (70-105); Potassium 3.6 mmol/L (3.5-5.1); Sodium 140 mmol/L (136-145)
[2020-05-30] MEDS: carBAMazepine 200 MG TAB PO SCH (08:10)
[2020-05-30] MEDS: Benztropine 1 MG TAB PO SCH ×2 (08:10→15:54)
[2020-05-30] MEDS ORDERED: Pantoprazole 40 MG VIAL IVP SCH (09:00)
[2020-05-30] MEDS ORDERED: Lisinopril 20 MG TAB PO SCH (09:00)
[2020-05-30] MEDS: Hydrocodone-Acetamin 15 ML UDCUP PO PRN (12:36)
[2020-05-30 16:00] VITALS: BP 133/77; TEMP 98.8
== END 2020-05-30 17:55 | disposition home or self-care (01) ==
LOC: SDC 09:45 → SURG A 14:34
PROVIDERS: ADMIT Surgery; ATTEND Surgery
PROC: 0DV44ZZ Restriction of Esophagogastric Junction, Percutaneous Endoscopic Approach (ICD-10-PCS; principal; 2020-05-29)
DX: K44.9 Diaphragmatic hernia without obstruction or gangrene (principal); K66.0 Peritoneal adhesions (postprocedural) (postinfection); K21.9 Gastro-esophageal reflux disease without esophagitis; M19.90 Unspecified osteoarthritis, unspecified site; E78.00 Pure hypercholesterolemia, unspecified; I10 Essential (primary) hypertension; Z79.899 Other long term (current) drug therapy; Z88.1 Allergy status to other antibiotic agents; Z88.2 Allergy status to sulfonamides; Z95.0 Presence of cardiac pacemaker
CPT/HCPCS: 43280; 80048; 85025; 96374; 96375; 96376 ×2; G0378 ×2; J2270; 36415; C9113; J0360; J0690; J1100; J2250; J2405; J2704; J3010; S0020

== ENCOUNTER 2021-02-19 08:31 | Outpatient (CLI) | payer MEDICARE | END 2021-02-19 08:32 | disposition home or self-care (01) | LOC: RAD-FRANK 08:31 | PROVIDERS: ATTEND Nurse Practitioner Family | DX: M79.652 Pain in left thigh (principal) ==

== ENCOUNTER 2024-02-04 10:43 | Outpatient (CLI) | payer OTHER, MEDICAID ==
[2024-02-04] MEDS ORDERED: Barium Sulfate 96% 176 GM BOT (xray ONLY) ONE (11:05)
[2024-02-04] MEDS ORDERED: E-Z-HD 98% W/W 340GM BOT (x-ray ONLY) ONE (11:05)
== END 2024-02-04 10:44 | disposition home or self-care (01) ==
LOC: RAD 10:43
PROVIDERS: ATTEND Surgery
DX: R13.19 Other dysphagia (principal); K21.9 Gastro-esophageal reflux disease without esophagitis; K44.9 Diaphragmatic hernia without obstruction or gangrene
CPT/HCPCS: 74220